=== PATIENT | male | born 1990 | race Caucasian/White ===

== ENCOUNTER 2016-10-21 13:46 | Inpatient (IN) | payer MEDICAID ==
[~2016-10-21] VITALS: Ht 180.3 cm; Wt 145.1 kg
[2016-10-21 13:46] VITALS: BP_SYST 153
[2016-10-21] MEDS ORDERED: NACL 0.9% 1,000 ML IV ONE (14:15)
[2016-10-21 14:51] LABS: HEMATOCRIT 24.7 % (36-54); HEMOGLOBIN 8.6 g/dL (14.0-18.0); MEAN CORPUSCULAR HEMOGLOBIN 31 pg (27-31); MEAN CORPUSCULAR HGB CONC 35 % (32-36); MEAN CORPUSCULAR VOLUME 89 fL (79.0-98.0); RED BLOOD CELL COUNT(AUTO) 2.78 MIL/uL (4.2-6.2); WHITE BLOOD COUNT (AUTO) 3.4 K/uL (4.8-10.8)
[2016-10-21 14:55] LABS: CALCIUM 8.7 mg/dL (8.4-11.0); CREATININE 1.25 mg/dL (0.55-1.30); POTASSIUM 4.1 mmol/L (3.5-5.1)
[2016-10-21 15:10] LABS: ALBUMIN 3.3 g/dL (3.4-4.8); THYROID STIMULATING HORMONE 1.85 uIu/mL (0.34-4.82); TOTAL PROTEIN, SERUM 7.3 g/dL (6.4-8.3)
[2016-10-21 15:12] LABS: PLATELET COUNT (AUTO) 16 K/uL (130-430)
[2016-10-21 15:32] LABS: BILIRUBIN,URINE 1+ (NEGATIVE); BLOOD, URINE NEGATIVE (NEGATIVE); CLARITY/URINE CLEAR (CLEAR); COLOR,URINE AMBER (YELLOW); GLUCOSE,URINE NEGATIVE (NEGATIVE); KETONES,URINE NEGATIVE (NEGATIVE); LEUKOCYTE ESTERASE ,URINE NEGATIVE (NEGATIVE); NITRITE, URINE NEGATIVE (NEGATIVE); PH,URINE 5.5 (5.0-8.0); PROTEIN URINE TRACE (NEGATIVE)
[2016-10-21] MEDS ORDERED: IOHEXOL 100 ML IV ONE (15:51)
[2016-10-21 15:58] LABS: BACTERIA,URINE FEW /HPF (None Seen); MUCUS,URINE 2+ /LPF (None Seen); RBC,URINE 0-3 /HPF (0-3); WBC,URINE 0-3 /HPF (0-3)
[2016-10-21 15:59] LABS: ATYPICAL LYMPHOCYTES % 2 % (0-0); BAND % (MANUAL) 3 % (0-6); BASOPHILS % (MANUAL) 0 % (0-2); EOSINOPHILS % (MANUAL) 1 % (0-7); LYMPHOCYTES % (MANUAL) 84 % (20-46); MONOCYTES % (MANUAL) 1 % (0-11); MYELOCYTES % 2 % (0-0)
[2016-10-21 16:30] VITALS: BP_SYST 132
[2016-10-21 20:00] VITALS: BP_SYST 129
[2016-10-22] VITALS (7 sets, daily range): BP systolic 125–154
[2016-10-22 07:25] LABS: MEAN CORPUSCULAR HEMOGLOBIN 31 pg (27-31); MEAN CORPUSCULAR HGB CONC 35 % (32-36); MEAN CORPUSCULAR VOLUME 89 fL (79.0-98.0); RED CELL DISTRIBUTION WIDTH 17.2 % (9.0-15.0); WHITE BLOOD COUNT (AUTO) 2.8 K/uL (4.8-10.8)
[2016-10-22 07:32] LABS: HEMATOCRIT 20.5 % (36-54); HEMOGLOBIN 7.2 g/dL (14.0-18.0); PLATELET COUNT (AUTO) 16 K/uL (130-430)
[2016-10-22 08:00] LABS: ALBUMIN 2.9 g/dL (3.4-4.8); CALCIUM 8.4 mg/dL (8.4-11.0); CREATININE 1.24 mg/dL (0.55-1.30); FREE T4 (FREE THYROXINE) 1.1 ng/dL (0.6-1.6); POTASSIUM 4.5 mmol/L (3.5-5.1); THYROID STIMULATING HORMONE 1.76 uIu/mL (0.34-4.82); TOTAL BILIRUBIN 1.7 mg/dL (0.0-1.0); TOTAL PROTEIN, SERUM 6.5 g/dL (6.4-8.3)
[2016-10-22 08:42] LABS: IRON (SERUM) 268 mcg/dL (59-158); TOTAL IRON BIND. CAPACITY 269 ug/dL (250-450)
[2016-10-22 09:29] LABS: ATYPICAL LYMPHOCYTES % 14 % (0-0); BASOPHILS % (MANUAL) 0 % (0-2); EOSINOPHILS % (MANUAL) 0 % (0-7); LYMPHOCYTES % (MANUAL) 76 % (20-46); MONOCYTES % (MANUAL) 7 % (0-11)
[2016-10-22] MEDS ORDERED: DIPHENHYDRAMINE HCL 25 MG CAPSULE PO ONE (09:45)
[2016-10-22] MEDS ORDERED: ACETAMINOPHEN 325 MG TABLET PO ONE (09:45)
[2016-10-22] MEDS ORDERED: NACL 0.9% IV SCH (10:45)
[2016-10-22] MEDS ORDERED: NACL 0.9% 1,000 ML IV SCH (10:45)
[2016-10-22] MEDS ORDERED: JECT IV SCH (10:45)
[2016-10-22] MEDS ORDERED: SODIUM BICARBONATE 8.4% IV SCH (10:45)
[2016-10-23 10:55] LABS: HEPATITIS A AB, IgM Negative (Negative); HEPATITIS B CORE AB, IgM Negative (Negative); HEPATITIS B SURFACE AG Negative (Negative)
[2016-10-23 17:02] LABS: FOLATE (FOLIC ACID) 4.3 ng/mL (>3.0)
[2016-10-25 16:15] LABS: HEPATITIS B CORE AB, IgM Negative (Negative); HEPATITIS B CORE AB, TOTAL Negative (Negative); HEPATITIS B SURFACE AG Negative (Negative); HEPATITIS Be AB Negative (Negative); HEPATITIS Be AG Negative (Negative); HEPATITIS C VIRUS AB 0.2 s/co ratio (0.0-0.9)
== END 2016-10-22 21:25 | disposition short-term general hospital (02) ==
LOC: SED 13:46 → STU 16:09
PROVIDERS: ADMIT Internal Medicine; ATTEND Internal Medicine
PROC: 30233N1 Transfusion of Nonautologous Red Blood Cells into Peripheral Vein, Percutaneous Approach (ICD-10-PCS; principal; 2016-10-22)
PROC: 30233R1 Transfusion of Nonautologous Platelets into Peripheral Vein, Percutaneous Approach (ICD-10-PCS; 2016-10-22)
DX: B17.9 Acute viral hepatitis, unspecified (principal); D61.818 Other pancytopenia; E44.1 Mild protein-calorie malnutrition; R16.2 Hepatomegaly with splenomegaly, not elsewhere classified; Z68.41 Body mass index [BMI] 40.0-44.9, adult; D58.9 Hereditary hemolytic anemia, unspecified; E66.9 Obesity, unspecified
CPT/HCPCS: 36415; 71010; 80053; 80074; 81000-TC; 82306; 82607; 82746; 83010; 83540-TC; 83550-TC; 83605; 83615-TC; 83735-TC; 83880; 84439; 84443-TC; 84484; 84550-TC; 85007; 85027; 85044-TC; 85384-TC; 85610-TC; 86704; 86705; 86706; 86707; 86708; 86709; 86803; 86886; 86900; 86901; 86920; 87040-TC; 87340; 87350; 93005; 96360; 99285; J7030; J7040; P9021; P9034; Q0163; Q9967

== ENCOUNTER 2016-12-30 08:06 | Emergency (ER) | payer MEDICAID ==
[~2016-12-30] VITALS: Ht 180.3 cm; Wt 142.4 kg
[2016-12-30 08:08] VITALS: BP 150/112; PULSE 93; RESP 15; TEMP 95.9; O2SAT 99
--- NOTE | 2016-12-30 08:08 | NUR ---
Pt report received from MICHELLE Garcia. Pt c/o Right sided nose bleed x 30 min [employer]. Pt with Hx ALL. Nose bleed controlled.
--- NOTE | 2016-12-30 08:08 | NUR ---
Patient to ER bed 3 to gown for evaluation. Side rails up. Report given to Mukesh MARTINEZ.
--- NOTE | 2016-12-30 08:17 | NUR ---
Dr. Bales at bedside to place Rhino Rocket.
--- NOTE | 2016-12-30 08:21 | NUR ---
Dr. Bales had pt blow nose to dislodge clotts. No active bleeding. Rhino Rocket not placed.
[2016-12-30] MEDS ORDERED: PHENYLEPHRINE HCL 1% NASAL 15 ML NASPR NS PRN (08:30)
[2016-12-30 08:45] LABS: HEMATOCRIT 34.1 % (36-54); HEMOGLOBIN 11.4 g/dL (14.0-18.0); MEAN CORPUSCULAR HEMOGLOBIN 28 pg (27-31); MEAN CORPUSCULAR HGB CONC 34 % (32-36); MEAN CORPUSCULAR VOLUME 84 fL (79.0-98.0); RED BLOOD CELL COUNT(AUTO) 4.04 MIL/uL (4.2-6.2); RED CELL DISTRIBUTION WIDTH 12.8 % (9.0-15.0)
[2016-12-30 08:57] LABS: INR 0.9 (0.80-1.20); PROTHROMBIN TIME 10.3 SECS (9.5-12.5)
--- NOTE | 2016-12-30 09:00 | NUR ---
Dr. Bales at bedside to administer Neosynephrine nasal spray. No bleeding noted.
[2016-12-30 09:02] LABS: WHITE BLOOD COUNT (AUTO) 0.8 K/uL (4.8-10.8)
[2016-12-30 09:03] LABS: PLATELET COUNT (AUTO) 44 K/uL (130-430)
[2016-12-30] MEDS ORDERED: BACITRACIN 1 GM OINT TP ONE (09:15)
--- NOTE | 2016-12-30 10:00 | NUR ---
No needs verbalized. No further nasal bleeding noted.
[2016-12-30 10:20] LABS: BASOPHILS % (MANUAL) 0 % (0-2); EOSINOPHILS % (MANUAL) 7 % (0-7); LYMPHOCYTES % (MANUAL) 60 % (20-46); MONOCYTES % (MANUAL) 1 % (0-11)
[2016-12-30 10:42] VITALS: BP 142/98; PULSE 68; RESP 20; TEMP 98.2; O2SAT 100
--- NOTE | 2016-12-30 10:42 | NUR ---
Patient given written and verbal discharge instructions and verbalizes understanding. ER MD discussed with patient the results and treatment provided. Patient in stable condition. ID arm band removed. No Rx given. Patient educated on pain management and to follow up with PMD. Pain Scale 0/10. Opportunity for questions provided and answered. No further epistaxis noted.
== END 2016-12-30 10:42 | disposition home or self-care (01) ==
LOC: SED 08:06
DX: R04.0 Epistaxis (principal)
CPT/HCPCS: 36415; 85007; 85027; 85610-TC; 85730-TC; 99284

== ENCOUNTER 2017-02-14 10:14 | Emergency (ER) | payer MEDICAID ==
[~2017-02-14] VITALS: Ht 180.3 cm; Wt 139.3 kg
[2017-02-14 10:14] VITALS: BP_SYST 134
[2017-02-14 11:42] LABS: BASOPHILS % (AUTO) 0.3 % (0.0-2.0); EOSINOPHILS # (AUTO) 0.2 K/uL (0.0-0.4); EOSINOPHILS % (AUTO) 2.1 % (0.0-4.0); HEMATOCRIT 42.4 % (36-54); HEMOGLOBIN 14.1 g/dL (14.0-18.0); LYMPHOCYTES % (AUTO) 12.5 % (20.5-51.5); MEAN CORPUSCULAR HEMOGLOBIN 29 pg (27-31); MEAN CORPUSCULAR HGB CONC 33 % (32-36); MEAN CORPUSCULAR VOLUME 86 fL (79.0-98.0); MONOCYTES # (AUTO) 0.9 K/uL (0.0-1.0); MONOCYTES % (AUTO) 11.8 % (1.7-9.3); NEUTROPHILS # (AUTO) 5.8 K/uL (1.8-7.7); NEUTROPHILS % (AUTO) 73.3 % (40.0-70.0); PLATELET COUNT (AUTO) 232 K/uL (130-430); RED BLOOD CELL COUNT(AUTO) 4.92 MIL/uL (4.2-6.2); RED CELL DISTRIBUTION WIDTH 14.8 % (9.0-15.0); WHITE BLOOD COUNT (AUTO) 7.9 K/uL (4.8-10.8)
[2017-02-14 11:43] LABS: CALCIUM 9.3 mg/dL (8.4-11.0); CREATININE 1.07 mg/dL (0.55-1.30); POTASSIUM 3.9 mmol/L (3.5-5.1)
[2017-02-14 11:51] LABS: ALBUMIN 4.4 g/dL (3.4-4.8); TOTAL BILIRUBIN 1.2 mg/dL (0.0-1.0)
[2017-02-14 13:02] LABS: BILIRUBIN,URINE NEGATIVE (NEGATIVE); BLOOD, URINE 2+ (NEGATIVE); CLARITY/URINE CLEAR (CLEAR); COLOR,URINE YELLOW (YELLOW); GLUCOSE,URINE NEGATIVE (NEGATIVE); KETONES,URINE NEGATIVE (NEGATIVE); LEUKOCYTE ESTERASE ,URINE NEGATIVE (NEGATIVE); NITRITE, URINE NEGATIVE (NEGATIVE); PROTEIN URINE NEGATIVE (NEGATIVE); UROBILINOGEN,URINE 0.2 (0.2-1.0)
[2017-02-14 13:23] LABS: BACTERIA,URINE FEW /HPF (None Seen); MUCUS,URINE 1+ /LPF (None Seen); WBC,URINE 0-3 /HPF (0-3)
[2017-02-14 14:49] VITALS: BP_SYST 132
== END 2017-02-14 14:49 | disposition home or self-care (01) ==
LOC: SED 10:14
DX: N23 Unspecified renal colic (principal)
CPT/HCPCS: 36415; 80053; 81000-TC; 82150-TC; 83605; 83690-TC; 84484; 85025; 87040-TC; 99285